=== PATIENT | female | born 1980 | race Two or more races ===

== ENCOUNTER 2022-09-26 12:13 | Emergency (ER) | payer OTHER ==
[2022-09-26 12:26] VITALS: BP 127/73; PULSE 73; RESP 18; TEMP 97.8; BMI 28.2
[2022-09-26] MEDS ORDERED: LIDOCAINE 5% TOPICAL PATCH TP ONE (14:17)
[2022-09-26] MEDS ORDERED: predniSONE 20 MG TABLET (UD) PO ONE (14:17)
[2022-09-26] MEDS ORDERED: ACETAMINOPHEN 500 MG TABLET (FP) PO ONE (14:17)
[2022-09-26] MEDS ORDERED: CYCLOBENZAPRINE HCL 10 MG TABLET (FP) PO ONE (14:17)
[2022-09-26] MEDS ORDERED: predniSONE 20 MG TABLET (UD) ONE (14:43)
[2022-09-26] MEDS ORDERED: ACETAMINOPHEN 500 MG TABLET (FP) ONE (14:43)
[2022-09-26] MEDS ORDERED: CYCLOBENZAPRINE HCL 10 MG TABLET (FP) ONE (14:43)
[2022-09-26] MEDS ORDERED: LIDOCAINE 5% TOPICAL PATCH ONE (14:43)
[2022-09-26] MEDS ORDERED: LIDOCAINE PATCH REMOVAL MC SCH (22:00)
== END 2022-09-26 15:48 | disposition home or self-care (01) ==
LOC: JERFT 12:13 → JER 12:13 → JERFT 15:48
DX: M54.32 Sciatica, left side (principal)
CPT/HCPCS: 99283-25